=== PATIENT | female | born 1990 | race Caucasian/White ===

== ENCOUNTER 2019-05-26 14:52 | Emergency (ER) | payer SELFPAY ==
[~2019-05-26] VITALS: Ht 149.9 cm; Wt 45.4 kg
[2019-05-26 14:59] VITALS: BP 129/74
--- NOTE | 2019-05-26 15:19 | NUR ---
28/F C/O DIFFICULTY BREATHING THROUGH THE MOUTH. STATES ALLERGIC REACTION WITH SWELLING OF TONGUE, REFUSED TO OPEN THE MOUTH FOR ASSESSMENT. 98% RA AT THIS TIME. DENIES NEW FOODS/LIQUIDS/BODY PRODUCTS USED. STATES RASH AROUND LIPS. SMALL PATCHES ERYTHEMA AROUND LIPS WITHOUT EDEMA. PT APPEARS ANXIOUS AND TEARFUL. SOFT INTERMITTENT DIFFUSE WHEEZING NOTED. ASSESMENT LIMITED DUE TO PATIENT BEHAVIOR. HX - DENIES
--- NOTE | 2019-05-26 15:52 | NUR ---
PT SITTING IN CHAIR, CALM, NO SIGNS OF RESPIRATORY DISTRESS. 99% RA.
--- NOTE | 2019-05-26 16:04 | NUR ---
PT SPEAKING ON PERSONAL CELLPHONE, CLEAR VOICE, LAUGHING.
--- NOTE | 2019-05-26 16:39 | NUR ---
DR STEWARD SPEAKING WITH PT
[2019-05-26] MEDS ORDERED: diphenhydrAMINE 50 MG/ML VIAL IM ONE (16:40)
[2019-05-26] MEDS ORDERED: methylPREDNISolone SS 125 MG in WATER STERILE 2 ML IM ONE (16:40)
[2019-05-26] MEDS ORDERED: WATER STERILE 10 ML MC ONE (16:43)
[2019-05-26] MEDS ORDERED: methylPREDNISolone SS 125 MG/2 ML VIAL ONE (16:43)
--- NOTE | 2019-05-26 17:01 | NUR ---
PT STATES SHE NEEDS TO LEAVE MAURICIO TO BOOKING AGENT HER CHILD. DR STEWARD MADE AWARE.
--- NOTE | 2019-05-26 17:09 | NUR ---
Patient discharged with v/s stable. Written and verbal after care instructions given and explained. Patient alert, oriented and verbalized understanding of instructions. Ambulatory with steady gait. All questions addressed prior to discharge. ID band removed. Patient advised to follow up with PMD. Rx of MEDROL given. Patient educated on indication of medication including possible reaction and side effects. Opportunity to ask questions provided and answered.
[2019-05-26 17:12] VITALS: BP 129/74
== END 2019-05-26 17:09 | disposition home or self-care (01) ==
LOC: MED 14:52
DX: J02.9 Acute pharyngitis, unspecified (principal); D64.9 Anemia, unspecified
CPT/HCPCS: 96372; 99283; J1200; J2930